=== PATIENT | female | born 1950 | race Caucasian/White ===

== ENCOUNTER 2022-09-21 19:43 | Emergency (ER) | payer OTHER ==
[~2022-09-21] VITALS: Ht 162.6 cm; Wt 90.7 kg
[2022-09-21 21:06] VITALS: BP_SYST 148
[2022-09-21] MEDS ORDERED: GLIP10TA11 PO (21:11)
[2022-09-21] MEDS ORDERED: METF-518 PO (21:11)
--- NOTE | 2022-09-21 21:12 | NUR ---
Patient triaged and placed in waiting room. VS checked and patient appears in no acute distress at this time. Accompanied by family , awaiting available bed, and MD notified of need for MSE.
--- NOTE | 2022-09-21 22:24 | NUR ---
Patient left without being seen. ER MD aware
[2022-09-22] MEDS ORDERED: SULF1TAB48 PO (14:40)
[2022-09-22] MEDS ORDERED: OMEP-455 PO (14:40)
[2022-09-22] MEDS ORDERED: ONDA-8 TL (14:40)
[2022-09-22] MEDS ORDERED: CIPR500T5 PO (16:54)
== END 2022-09-21 22:24 | disposition left against medical advice (07) ==
LOC: SED 19:43
DX: R53.1 Weakness (principal); R19.7 Diarrhea, unspecified; Z53.21 Procedure and treatment not carried out due to patient leaving prior to being seen by health care provider

== ENCOUNTER 2022-09-22 08:00 | Emergency (ER) | payer OTHER ==
[~2022-09-22] VITALS: Ht 160 cm; Wt 79.4 kg
[~2022-09-22 08:00] MED LIST: GLIP10TA11 PO; METF-518 PO
[2022-09-22 08:22] VITALS: BP_SYST 141
--- NOTE | 2022-09-22 08:22 | NUR ---
Patient triaged and placed in waiting room. VSS and patient appears in no acute distress at this time. Accompanied by DAUGHTER, awaiting available bed, and MD notified of need for MSE.
--- NOTE | 2022-09-22 09:15 | NUR ---
Placed in room 06 . Placed on cardiac/vascular sonographer, blood pressure machine and pulse oximeter. To gown for exam. Side rails up. Report given to MAXIME RAY.
--- NOTE | 2022-09-22 09:16 | NUR ---
Patient came in from home c/o diarrhea, nausea, L side abd pain and bloating x 2 weeks. Pt has hx hypothyroid and diabetes. Patient is A&Ox4, ambulatory, VSS, afebrile. Daughter is with patient at the bedside. Care to be provided as ordered.
[2022-09-22 09:27] LABS: BILIRUBIN,URINE NEGATIVE (NEGATIVE); BLOOD, URINE NEGATIVE (NEGATIVE); CLARITY/URINE CLEAR (CLEAR); COLOR,URINE YELLOW (YELLOW); GLUCOSE,URINE TRACE (NEGATIVE); KETONES,URINE TRACE (NEGATIVE); LEUKOCYTE ESTERASE ,URINE NEGATIVE (NEGATIVE); NITRITE, URINE POSITIVE (NEGATIVE); PH,URINE 5.5 (5.0-8.0); PROTEIN URINE NEGATIVE (NEGATIVE); UROBILINOGEN,URINE 0.2 (0.2-1.0)
[2022-09-22] MEDS ORDERED: MAG HYDROX/AL HYDROX/SIMETH 30 ML, LIDOCAINE VISCOUS 2% 15ML (PO) 15 ML, DICYCLOMINE HC... PO ONE ×3 (10:00)
[2022-09-22] MEDS ORDERED: NACL 0.9% 1,000 ML IV ONE (10:00)
--- NOTE | 2022-09-22 10:00 | NUR ---
RITO Johns at bedside examining patient.
[2022-09-22 10:06] LABS: BACTERIA,URINE FEW /HPF (None Seen); RBC,URINE 0-3 /HPF (0-3); WBC,URINE 0-3 /HPF (0-3)
[2022-09-22 10:07] LABS: MUCUS,URINE None Seen /LPF (None Seen); YEAST,URINE Rare /HPF (None Seen)
[2022-09-22 10:16] LABS: BASOPHILS % (AUTO) 0.3 % (0.0-2.0); EOSINOPHILS # (AUTO) 0.1 K/uL (0.0-0.4); EOSINOPHILS % (AUTO) 0.4 % (0.0-4.0); HEMATOCRIT 36.1 % (36-48); HEMOGLOBIN 12.1 g/dL (12.0-16.0); LYMPHOCYTES # (AUTO) 2.1 K/uL (1.0-5.5); LYMPHOCYTES % (AUTO) 16.7 % (20.5-51.5); MEAN CORPUSCULAR HEMOGLOBIN 26 pg (27-31); MEAN CORPUSCULAR HGB CONC 33 % (32-36); MEAN CORPUSCULAR VOLUME 77 fL (79.0-98.0); MONOCYTES # (AUTO) 0.9 K/uL (0.0-1.0); MONOCYTES % (AUTO) 7.3 % (1.7-9.3); NEUTROPHILS # (AUTO) 9.7 K/uL (1.8-7.7); NEUTROPHILS % (AUTO) 75.3 % (40.0-70.0); PLATELET COUNT (AUTO) 245 K/uL (130-430); RED CELL DISTRIBUTION WIDTH 15.9 % (9.0-15.0); WHITE BLOOD COUNT (AUTO) 12.9 K/uL (4.8-10.8)
[2022-09-22 10:30] LABS: ANION GAP 7 (5-15); CALCIUM 9.4 mg/dL (8.4-11.0); CHLORIDE 102 mmol/L (98-107); CREATININE 0.79 mg/dL (0.55-1.30); GLUCOSE 220 mg/dL (70-99); UREA NITROGEN, BLOOD 22 mg/dL (8-21)
--- NOTE | 2022-09-22 10:34 | NUR ---
#20 gauge angiocath placed to R AC. Use of asceptic technique. Opsite placed over site. Blood return noted. Flushed with 10 cc of normal saline. No evidence of infiltration noted. Patient tolerated well.
[2022-09-22 10:42] LABS: ALANINE AMINOTRANSFERASE 18 U/L (12-78); ALBUMIN 3.6 g/dL (3.4-4.8); ASPARTATE AMINOTRANSFERASE 11 U/L (10-37); LIPASE 130 U/L (73-393); TOTAL BILIRUBIN 0.7 mg/dL (0.0-1.0)
[2022-09-22] MEDS ORDERED: CEFEPIME 1 GM in D5W 50 ML IV ONE (13:45)
[2022-09-22] MEDS ORDERED: ONDA-8 TL (14:40)
[2022-09-22] MEDS ORDERED: OMEP-455 PO (14:40)
[2022-09-22] MEDS ORDERED: SULF1TAB48 PO (14:40)
[2022-09-22] MEDS ORDERED: CEFEPIME 1 GM/VIAL (MAXIPIME) ONE (15:01)
[2022-09-22] MEDS ORDERED: CIPR500T5 PO (16:54)
[2022-09-22 17:01] VITALS: BP_SYST 121
--- NOTE | 2022-09-22 17:03 | NUR ---
Patient given written and verbal discharge instructions and verbalizes understanding. ER DR. ANALISA RODRIGUEZ discussed with patient the results and treatment provided. Patient in stable condition. ID arm band removed. IV catheter removed intact and dressing applied, no active bleeding. Rx of CIPRO given. Patient educated on pain management and to follow up with PMD. Pain Scale 0/10. Opportunity for questions provided and answered. Medication side effect fact sheet provided.
== END 2022-09-22 17:02 | disposition home or self-care (01) ==
LOC: SED 08:00
DX: A09 Infectious gastroenteritis and colitis, unspecified (principal); R11.10 Vomiting, unspecified; R10.9 Unspecified abdominal pain; E11.9 Type 2 diabetes mellitus without complications; Z79.899 Other long term (current) drug therapy
CPT/HCPCS: 99285; 74176; 96365; 96361; 80053; 82962; 83690; 85025; 87086; 36415; 73502; 74018; 76376; 81003; 81000; J2001; J0692; J7060; J7030

== ENCOUNTER 2023-01-03 08:53 | Emergency (ER) | payer OTHER ==
[~2023-01-03] VITALS: Ht 162.6 cm; Wt 87.5 kg
[~2023-01-03 08:53] MED LIST changes: +CIPR500T5 PO
[2023-01-03 09:15] VITALS: BP_SYST 146
--- NOTE | 2023-01-03 09:15 | NUR ---
PT BIB WITH C/O DIZZINESS. PT IS AAOX4. NO R/A. NORMAL S1S2 NOTED. GUNJAN N/V/D/C. DISTAL PULSES NORMAL, SKIN WARM, CDI, NO EDEMA. DENIES PAIN. SIDERAILS UP X2.
--- NOTE | 2023-01-03 09:20 | NUR ---
DR. RINCON AT BEDSIDE TO ASSESS PT.
[2023-01-03] MEDS ORDERED: MECLIZINE HCL 25 MG TABLET (ANITVERT) PO ONE (10:00)
[2023-01-03] MEDS ORDERED: MECL-160 PO (10:13)
--- NOTE | 2023-01-03 10:18 | NUR ---
ANTIVERT PO GIVEN.
--- NOTE | 2023-01-03 11:16 | NUR ---
DR. RINCON AT BEDSIDE TO DISCUSS POC. PT DIZZINESS HAS IMPROVED. PT TO DISCHARGE.
--- NOTE | 2023-01-03 11:17 | NUR ---
Patient given written and verbal discharge instructions and verbalizes understanding. ER MD discussed with patient the results and treatment provided. Patient in stable condition. ID arm band removed. Rx of MECLIZINE given. Patient educated on pain management and to follow up with PMD. Pain Scale 0/10. Opportunity for questions provided and answered. Medication side effect fact sheet provided.
[2023-01-03 11:19] VITALS: BP_SYST 133
== END 2023-01-03 11:19 | disposition home or self-care (01) ==
LOC: SED 08:53
DX: R42 Dizziness and giddiness (principal); R11.2 Nausea with vomiting, unspecified; R68.83 Chills (without fever); E11.9 Type 2 diabetes mellitus without complications; I10 Essential (primary) hypertension; Z79.899 Other long term (current) drug therapy
CPT/HCPCS: 99282; 81002; J8597